=== PATIENT | female | born 1955 | race African-American/Black ===

== ENCOUNTER → 2016-08-13 | Outpatient (CLI) | payer MEDICARE ==
--- NOTE | 2016-08-13 15:33 | WOMENS IMAGING REPORT ---
EXAM DESCRIPTION: BILAT SCREENING MAMMO W/CAD COMPLETED DATE/TIME: 08/13/2016 3:23 pm REASON FOR STUDY: ROUTINE SCREENING; Z12.31 Z12.31 ENCNTR SCREEN MAMMOGRAM FOR MALIGNANT NEOPLASM O F JESSIE COMPARISON: 07/12/2015. TECHNIQUE: Standard craniocaudal and mediolateral oblique views of each breast recorded using UBIKODa l acquisition. LIMITATIONS: None. FINDINGS: Findings present which are benign by mammographic criteria. No suspicious masses, calcifi cations or architectural distortion. Pertinent benign findings: Calcifications unchanged. Read with the assistance of CAD. .[facility] - R2 Cenova Version 1.3 .[facility] - R2 Cenova Version 1.3 .[facility] - R2 Cenova Version 2.4 .[facility] [place] R2 Cenova Version 2.4 .[facility] - R2 Enrolled Nurse Version 9.2 Benign mammographic findings may include one or more of the following: Smooth masses, popcorn/rim/co arse calcifications, asymmetries, post-procedure changes, and lesions with long-standing stability. IMPRESSION: BENIGN MAMMOGRAPHIC FINDINGS. BIRADS 2 BREAST DENSITY: b. There are scattered areas of fibroglandular density. BIRAD: 2 BENIGN FINDING(S) RECOMMENDATION: ROUTINE SCREENING COMMENT: The patient has been notified of the results by letter per SA requirements. Additional no tification policies are in place for contacting patient with suspicious or incomplete findings. Quality ID #225: The [employer] recommends an annual screening mammogram for women aged 40 years or over. This facility utilizes a reminder system to ensure that all patients receive reminder letters, and/or direct phone calls for appointments. This includes reminders for routine scr eening mammograms, diagnostic mammograms, or other Breast Imaging Interventions when appropriate. Th is patient will be placed in the appropriate reminder system. The [employer] (ACR) has developed recommendations for screening MRI of the breast s in certain patient populations, to be used in conjunction with mammography. Breast MRI surveillanc e may be appropriate for women with more than 20% lifetime risk of developing breast cancer as deter mined by genetic testing, significant family history of the disease, or history of mantle radiation f or Hodgkins Disease. ACR Practice Guidelines 2008. TECHNICAL DOCUMENTATION: FINDING NUMBER: (1) ASSESSMENT: (1) JOB ID: [id number] [employer]- All Rights Reserved
== END ==
LOC: WI 15:01
PROVIDERS: ATTEND Internal Medicine
DX: Z12.31 Encounter for screening mammogram for malignant neoplasm of breast (principal)
CPT/HCPCS: 77067; G0202

== ENCOUNTER → 2017-04-30 | Outpatient (CLI) | payer MEDICARE ==
--- NOTE | 2017-04-30 14:31 | RADIOLOGY REPORT (SQ) ---
EXAM DESCRIPTION: CAROTID DOPPLER COMPLETED DATE/TIME: 04/30/2017 1:42 pm REASON FOR STUDY: ABNORMALITIES OF GAIT AND MOBILITY R06.00 DYSPNEA, UNSPECIFIED R26.9 UNSPECIFIED ABNORMALITIES OF GAIT AND MOBILITY COMPARISON: None. TECHNIQUE: Grayscale ultrasound, Doppler velocity and spectra, and color Doppler images acquired of the extra-cranial carotid and vertebral arteries. Images stored on PACS. LIMITATIONS: None. FINDINGS: RIGHT CAROTID CCA Velocities: Within normal limits. ICA Velocities Peak systolic 0.51 m/s. End diastolic 0.15 m/s. Proximal ICA/CCA peak systolic ratio 0.8. Spectra normal. No significant plaque. LEFT CAROTID CCA Velocities: Within normal limits. ICA Velocities Peak systolic 1.09 m/s. End diastolic 0.43 m/s. Proximal ICA/CCA peak systolic ratio 1.4. Spectra normal. No significant plaque. VERTEBRAL ARTERIES: Antegrade flow. Normal waveforms. SUBCLAVIAN ARTERIES: Not imaged. OTHER: No other significant finding. IMPRESSION: NO HEMODYNAMICALLY SIGNIFICANT STENOSIS. COMMENT: Quality ID #[id number]: Velocity criteria are extrapolated from the diameter data as defined by t he Society of Radiologists in Ultrasound Consensus Conference. Radiology 2003: 229; 340-346. TECHNICAL DOCUMENTATION: JOB ID: [id number] [employer]- All Rights Reserved Reading location - IP/workstation name: [email or web address]
== END ==
LOC: SP 12:45
PROVIDERS: ATTEND Internal Medicine
DX: R06.00 Dyspnea, unspecified (principal); R26.9 Unspecified abnormalities of gait and mobility
CPT/HCPCS: 93880

== ENCOUNTER 2017-05-28 23:28 | Emergency (ER) | payer MEDICARE ==
[2017-05-29] MEDS ORDERED: NORMAL SALINE 1000 ML 1,000 ML IV ONE ×3 (00:07→04:23)
[2017-05-29 00:38] LABS: ABSOLUTE BASOPHILS # (AUTO) 0.1 10^3/uL (0.0-0.2); ABSOLUTE EOSINOPHILS # (AUTO) 0.1 10^3/uL (0.0-0.6); ABSOLUTE LYMPHOCYTES (AUTO) 2.3 10^3/uL (0.5-4.7); ABSOLUTE MONOCYTES (AUTO) 0.6 10^3/uL (0.1-1.4); ABSOLUTE NEUT (AUTO) 1.9 10^3/uL (1.7-8.2); BASOPHILS % (AUTO) 1.1 % (0-2); EOSINOPHILS % (AUTO) 2.5 % (0-6); HEMATOCRIT 38.2 % (36.0-47.0); HEMOGLOBIN 12.9 g/dL (12.0-15.5); MEAN CORPUSCULAR HEMOGLOBIN 29.8 pg (27.0-33.4); MEAN CORPUSCULAR HGB CONC 33.8 g/dL (32.0-36.0); MEAN CORPUSCULAR VOLUME 88 fl (80-97); MONOCYTES % (AUTO) 11.4 % (3-13); PLATELET COUNT 175 10^3/uL (150-450); RED BLOOD COUNT 4.33 10^6/uL (3.72-5.28); RED CELL DISTRIBUTION WIDTH 14.1 % (11.5-14.0); TOTAL CELLS COUNTED % (AUTO) 100 %; WHITE BLOOD COUNT 4.9 10^3/uL (4.0-10.5)
[2017-05-29 00:50] LABS: ALANINE AMINOTRANSFERASE 27 U/L (9-52); ALBUMIN 4.3 g/dL (3.5-5.0); ALKALINE PHOSPHATASE 81 U/L (38-126); ANION GAP 14 (5-19); ASPARTATE AMINO TRANSFERASE 30 U/L (14-36); BILIRUBIN,DIRECT 0.4 mg/dL (0.0-0.4); BILIRUBIN,TOTAL 0.4 mg/dL (0.2-1.3); BLOOD UREA NITROGEN 37 mg/dL (7-20); CALCIUM 9.8 mg/dL (8.4-10.2); CARBON DIOXIDE 24 mmol/L (22-30); CHLORIDE 95 mmol/L (98-107); POTASSIUM 4.5 mmol/L (3.6-5.0)
[2017-05-29 01:05] LABS: GLUCOSE 577 mg/dL (75-110)
--- NOTE | 2017-05-29 01:37 | ER Document Report ---
ED General - General Chief Complaint: High Blood Sugar Stated Complaint: BLOOD SUGAR PROBLEM Time Seen by Provider: 05/29/17 01:11 Mode of Arrival: Ambulatory Information source: Patient, Relative Notes: 61-year-old female with a history of known liver cirrhosis, renal insufficiency, diabetes, hypertension, hyperlipidemia, hypothyroid presents with concern for elevated blood sugar. Patient states at home she had a high sugar reading despite her increasing her NovoLog. She states she has had intermittent elevated glucose readings over the last few weeks. She states she is working with her primary care physician and has had some recent adjustments in her NovoLog and Levemir. Patient denies any fever, chills, nausea, vomiting, chest pain, shortness of breath, back pain, abdominal pain, dysuria, hematuria, weakness. She does admit to a very poor diet. She states that she drinks " lots of pop" she states "I am a Pepsi freak". Patient admits to daily sweets. Family is at bedside. TRAVEL OUTSIDE OF THE [place] IN LAST 30 DAYS: No - HPI Onset: This evening Quality of pain: No pain Severity: None Associated symptoms: denies: Chest pain, Nonproductive cough, Diarrhea, Fever, Headache, Shortness of breath Exacerbated by: Denies Relieved by: Denies Similar symptoms previously: Yes Recently seen / treated by doctor: Yes - Dr Ramirez - Related Data Allergies/Adverse Reactions: No Known Allergies Allergy (Unverified 05/28/17 23:30) Past Medical History - General Information source: Patient - Social History Smoking Status: Former Smoker Cigarette use (# per day): No Chew tobacco use (# tins/day): Yes Smoking Education Provided: No Frequency of alcohol use: Prior history of alcohol use in remission for 9 years Drug Abuse: None Lives with: Family Family History: Reviewed & Not Pertinent Patient has suicidal ideation: No Patient has homicidal ideation: No - Past Medical History Cardiac Medical History: Reports: Hx Hypercholesterolemia, Hx Hypertension Endocrine Medical History: Reports: Hx Diabetes Mellitus Type 2, Hx Hypothyroidism Review of Systems - Review of Systems Notes: Patient denies any headache, blurred vision, fever, chills, nausea, vomiting, chest pain, shortness of breath, back pain, abdominal pain, dysuria, hematuria, weakness. She does admit to a very poor diet. Constitutional: denies: Fever Physical Exam - Vital signs Vitals: Temp Pulse Resp BP Pulse Ox 98.8 F 109 H 20 131/87 H 95 05/29/17 00:08 05/29/17 00:08 05/29/17 00:08 05/29/17 00:08 05/29/17 00:08 Interpretation: Normal, Tachycardic. No: Tachypneic, Febrile - General General appearance: Appears well, Alert In distress: None - HEENT Head: Normocephalic, Atraumatic Eyes: Normal Pupils: PERRL Mucous membranes: Normal Pharynx: Normal Neck: Normal - Respiratory Respiratory status: No respiratory distress Chest status: Nontender Breath sounds: Normal Chest palpation: Normal - Cardiovascular Rhythm: Regular Heart sounds: Normal auscultation Murmur: No Pulses: Normal: Radial, Dorsalis pedis Normal capillary refill: Yes - Abdominal Inspection: Normal Distension: No distension Bowel sounds: Normal Tenderness: Nontender Organomegaly: No organomegaly - Back Back: Normal, Nontender - Extremities General upper extremity: Normal inspection, Nontender, Normal color, Normal ROM , Normal temperature. No: Edema General lower extremity: Normal inspection, Nontender, Normal color, Normal ROM , Normal temperature, Normal weight bearing. No: Edema, Flaquito's sign - Neurological Neuro grossly intact: Yes Cognition: Normal Orientation: AAOx4 Ricci Coma Scale Eye Opening: Spontaneous [place] Coma Scale Verbal: Oriented Ricci Coma Scale Motor: Obeys Commands [place] Coma Scale Total: 15 Speech: Normal Cranial nerves: Normal Cerebellar coordination: Normal Motor strength normal: LUE, RUE, LLE, RLE Additional motor exam normals: Equal field administrative assistant, Dorsiflexion, Plantar flexion Sensory: Normal - Psychological Associated symptoms: Normal affect, Normal mood Course - Re-evaluation Re-evalutation: Laboratory 05/29/17 05/29/17 05/29/17 00:02 00:12 00:18 WBC 4.9 RBC 4.33 Hgb 12.9 Hct 38.2 MCV 88 MCH 29.8 MCHC 33.8 RDW 14.1 H Plt Count 175 Seg Neutrophils % 39.0 L Lymphocytes % 46.0 H Monocytes % 11.4 Eosinophils % 2.5 Basophils % 1.1 Absolute Neutrophils 1.9 Absolute Lymphocytes 2.3 Absolute Monocytes 0.6 Absolute Eosinophils 0.1 Absolute Basophils 0.1 Sodium Potassium Chloride Carbon Dioxide Anion Gap BUN Creatinine Est GFR ( Amer) Est GFR (Non-Af Amer) Glucose POC Glucose 523 H* Calcium Total Bilirubin Direct Bilirubin Neonat Total Bilirubin Neonat Direct Bilirubin Neonat Indirect Bili AST ALT Alkaline Phosphatase Total Protein Albumin Urine Color STRAW Urine Appearance CLEAR Urine pH 6.0 Ur Specific Ruffin 1.022 Urine Protein NEGATIVE Urine Glucose (UA) >=500 H Urine Ketones NEGATIVE Urine Blood NEGATIVE Urine Nitrite NEGATIVE Urine Bilirubin NEGATIVE Urine Urobilinogen 4.0 H Ur Leukocyte Esterase NEGATIVE Urine WBC (Auto) 1 Urine RBC (Auto) 0 Squamous Epi Cells Auto 1 Urine Mucus (Auto) RARE Urine Ascorbic Acid NEGATIVE 05/29/17 05/29/17 05/29/17 00:18 02:45 03:42 WBC RBC Hgb Hct MCV MCH MCHC RDW Plt Count Seg Neutrophils % Lymphocytes % Monocytes % Eosinophils % Basophils % Absolute Neutrophils Absolute Lymphocytes Absolute Monocytes Absolute Eosinophils Absolute Basophils Sodium 133.0 L Potassium 4.5 Chloride 95 L Carbon Dioxide 24 Anion Gap 14 BUN 37 H Creatinine 1.43 H Est GFR ( Amer) 45 L Est GFR (Non-Af Amer) 37 L Glucose 577 H* POC Glucose 419 H* 395 H Calcium 9.8 Total Bilirubin 0.4 Direct Bilirubin 0.4 Neonat Total Bilirubin Not Reportable Neonat Direct Bilirubin Not Reportable Neonat Indirect Bili Not Reportable AST 30 ALT 27 Alkaline Phosphatase 81 Total Protein 8.0 Albumin 4.3 Urine Color Urine Appearance Urine pH Ur Specific Ruffin Urine Protein Urine Glucose (UA) Urine Ketones Urine Blood Urine Nitrite Urine Bilirubin Urine Urobilinogen Ur Leukocyte Esterase Urine WBC (Auto) Urine RBC (Auto) Squamous Epi Cells Auto Urine Mucus (Auto) Urine Ascorbic Acid 05/29/17 05/29/17 05:03 06:19 WBC RBC Hgb Hct MCV MCH MCHC RDW Plt Count Seg Neutrophils % Lymphocytes % Monocytes % Eosinophils % Basophils % Absolute Neutrophils Absolute Lymphocytes Absolute Monocytes Absolute Eosinophils Absolute Basophils Sodium Potassium Chloride Carbon Dioxide Anion Gap BUN Creatinine Est GFR ( Amer) Est GFR (Non-Af Amer) Glucose POC Glucose 341 H 294 H Calcium Total Bilirubin Direct Bilirubin Neonat Total Bilirubin Neonat Direct Bilirubin Neonat Indirect Bili AST ALT Alkaline Phosphatase Total Protein Albumin Urine Color Urine Appearance Urine pH Ur Specific Ruffin Urine Protein Urine Glucose (UA) Urine Ketones Urine Blood Urine Nitrite Urine Bilirubin Urine Urobilinogen Ur Leukocyte Esterase Urine WBC (Auto) Urine RBC (Auto) Squamous Epi Cells Auto Urine Mucus (Auto) Urine Ascorbic Acid Laboratory 05/29/17 05/29/17 05/29/17 00:02 00:12 00:18 WBC 4.9 RBC 4.33 Hgb 12.9 Hct 38.2 MCV 88 MCH 29.8 MCHC 33.8 RDW 14.1 H Plt Count 175 Seg Neutrophils % 39.0 L Lymphocytes % 46.0 H Monocytes % 11.4 Eosinophils % 2.5 Basophils % 1.1 Absolute Neutrophils 1.9 Absolute Lymphocytes 2.3 Absolute Monocytes 0.6 Absolute Eosinophils 0.1 Absolute Basophils 0.1 Sodium Potassium Chloride Carbon Dioxide Anion Gap BUN Creatinine Est GFR ( Amer) Est GFR (Non-Af Amer) Glucose POC Glucose 523 H* Calcium Total Bilirubin Direct Bilirubin Neonat Total Bilirubin Neonat Direct Bilirubin Neonat Indirect Bili AST ALT Alkaline Phosphatase Total Protein Albumin Urine Color STRAW Urine Appearance CLEAR Urine pH 6.0 Ur Specific Ruffin 1.022 Urine Protein NEGATIVE Urine Glucose (UA) >=500 H Urine Ketones NEGATIVE Urine Blood NEGATIVE Urine Nitrite NEGATIVE Urine Bilirubin NEGATIVE Urine Urobilinogen 4.0 H Ur Leukocyte Esterase NEGATIVE Urine WBC (Auto) 1 Urine RBC (Auto) 0 Squamous Epi Cells Auto 1 Urine Mucus (Auto) RARE Urine Ascorbic Acid NEGATIVE 05/29/17 05/29/17 05/29/17 00:18 02:45 03:42 WBC RBC Hgb Hct MCV MCH MCHC RDW Plt Count Seg Neutrophils % Lymphocytes % Monocytes % Eosinophils % Basophils % Absolute Neutrophils Absolute Lymphocytes Absolute Monocytes Absolute Eosinophils Absolute Basophils Sodium 133.0 L Potassium 4.5 Chloride 95 L Carbon Dioxide 24 Anion Gap 14 BUN 37 H Creatinine 1.43 H Est GFR ( Amer) 45 L Est GFR (Non-Af Amer) 37 L Glucose 577 H* POC Glucose 419 H* 395 H Calcium 9.8 Total Bilirubin 0.4 Direct Bilirubin 0.4 Neonat Total Bilirubin Not Reportable Neonat Direct Bilirubin Not Reportable Neonat Indirect Bili Not Reportable AST 30 ALT 27 Alkaline Phosphatase 81 Total Protein 8.0 Albumin 4.3 Urine Color Urine Appearance Urine pH Ur Specific Ruffin Urine Protein Urine Glucose (UA) Urine Ketones Urine Blood Urine Nitrite Urine Bilirubin Urine Urobilinogen Ur Leukocyte Esterase Urine WBC (Auto) Urine RBC (Auto) Squamous Epi Cells Auto Urine Mucus (Auto) Urine Ascorbic Acid 05/29/17 05/29/17 05:03 06:19 WBC RBC Hgb Hct MCV MCH MCHC RDW Plt Count Seg Neutrophils % Lymphocytes % Monocytes % Eosinophils % Basophils % Absolute Neutrophils Absolute Lymphocytes Absolute Monocytes Absolute Eosinophils Absolute Basophils Sodium Potassium Chloride Carbon Dioxide Anion Gap BUN Creatinine Est GFR ( Amer) Est GFR (Non-Af Amer) Glucose POC Glucose 341 H 294 H Calcium Total Bilirubin Direct Bilirubin Neonat Total Bilirubin Neonat Direct Bilirubin Neonat Indirect Bili AST ALT Alkaline Phosphatase Total Protein Albumin Urine Color Urine Appearance Urine pH Ur Specific Ruffin Urine Protein Urine Glucose (UA) Urine Ketones Urine Blood Urine Nitrite Urine Bilirubin Urine Urobilinogen Ur Leukocyte Esterase Urine WBC (Auto) Urine RBC (Auto) Squamous Epi Cells Auto Urine Mucus (Auto) Urine Ascorbic Acid 05/29/17 20:11 61 y/o female with diabetes presents with c/o elevated glucose reading at home. Patient is currently taking novolog and levemir and states despite increasing her medications recently under the advice of her pcp she has noticed intermittent high readings at home. VSS upon arrival. She has no physical complaints and her exam is wnl. She does not appear toxic or dehydrated and is NAD. her family is at the bedside and she is laughing and joking with everyone. Patient has glucose of 577 upon arrival this improved to 294 after three litres of fluids and sq insulin. There is no evidence of dka or inciting infection. Patient does have an elevated BUN and creatinine. when I discussed these findings patient states she is aware of this and admits to poor water intake and only drinking pepsi. I believe elevated glucose is secondary to patient's poor diet. Patient counseled on importance of diet and exercise, water intake, the effects of elevated glucose. She laughs and states she met someone who is making her eat better. She was discharged home with her family. Patient tolerating fluids and "fast food" prior to discharge. 05/29/17 20:13 05/29/17 20:29 - Vital Signs Vital signs: Temp Pulse Resp BP Pulse Ox 98.6 F 109 H 25 H 136/86 H 99 05/29/17 06:37 05/29/17 00:08 05/29/17 06:36 05/29/17 06:37 05/29/17 06:36 - Laboratory Result Diagrams: 05/29/17 00:18 05/29/17 00:18 Laboratory results interpreted by me: 05/29/17 05/29/17 05/29/17 00:02 00:12 00:18 RDW 14.1 H Seg Neutrophils % 39.0 L Lymphocytes % 46.0 H Sodium Chloride BUN Creatinine Est GFR ( Amer) Est GFR (Non-Af Amer) Glucose POC Glucose 523 H* Urine Glucose (UA) >=500 H Urine Urobilinogen 4.0 H 05/29/17 05/29/17 05/29/17 00:18 02:45 03:42 RDW Seg Neutrophils % Lymphocytes % Sodium 133.0 L Chloride 95 L BUN 37 H Creatinine 1.43 H Est GFR ( Amer) 45 L Est GFR (Non-Af Amer) 37 L Glucose 577 H* POC Glucose 419 H* 395 H Urine Glucose (UA) Urine Urobilinogen 05/29/17 05/29/17 05:03 06:19 RDW Seg Neutrophils % Lymphocytes % Sodium Chloride BUN Creatinine Est GFR ( Amer) Est GFR (Non-Af Amer) Glucose POC Glucose 341 H 294 H Urine Glucose (UA) Urine Urobilinogen Discharge - Discharge Clinical Impression: Hyperglycemia due to type 2 diabetes mellitus Qualifiers: Diabetes mellitus [facility] insulin use: with [facility] use Qualified Code(s): E11.65 - Type 2 diabetes mellitus with hyperglycemia Disposition: HOME, SELF-CARE Instructions: Hyperglycemia ([facility]) Referrals: REGINA ROBERTSON MD [Primary Care Provider] - Follow up in 3-5 days
[2017-05-29 02:39] LABS: APPEARANCE,URINE CLEAR; BILIRUBIN,URINE NEGATIVE (NEGATIVE); COLOR,URINE STRAW; GLUCOSE, URINE >=500 mg/dL (NEGATIVE); KETONES,URINE NEGATIVE (NEGATIVE); LEUKOCYTE ESTERASE,URINE NEGATIVE (NEGATIVE); NITRITE,URINE NEGATIVE (NEGATIVE); PROTEIN,URINE NEGATIVE (NEGATIVE); URINE SPECIFIC GRAVITY 1.022
[2017-05-29] MEDS ORDERED: INSULIN LISPRO 100 UNIT/ML 3 ML VIAL SUBCUT ONE (05:06)
[2017-05-29 06:40] VITALS: BP 136/86
== END 2017-05-29 06:41 | disposition home or self-care (01) ==
LOC: ER 23:28
DX: E11.65 Type 2 diabetes mellitus with hyperglycemia (principal); I10 Essential (primary) hypertension; Z79.4 Long term (current) use of insulin; Z87.891 Personal history of nicotine dependence
CPT/HCPCS: 99283; 96360; 96361; 36415; 82962; 85025; 80053; 81001; A9270; J7030; J1815

== ENCOUNTER → 2017-08-14 | Outpatient (CLI) | payer MEDICARE ==
--- NOTE | 2017-08-15 14:44 | WOMENS IMAGING REPORT ---
EXAM DESCRIPTION: BILAT SCREENING MAMMO W/CAD COMPLETED DATE/TIME: 08/14/2017 11:37 am REASON FOR STUDY: ROUTINE SCREENING;Z12.31 Z12.31 ENCNTR SCREEN MAMMOGRAM FOR MALIGNANT NEOPLASM OF JESSIE COMPARISON: 08/13/2016 and 07/12/2015 TECHNIQUE: Standard craniocaudal and mediolateral oblique views of each breast recorded using [employer] acquisition. LIMITATIONS: None. FINDINGS: Findings present which are benign by mammographic criteria. No suspicious masses, calcifi cations or architectural distortion. Read with the assistance of CAD. .[facility] - R2 Cenova Version 1.3 .[facility] - R2 Cenova Version 1.3 .[facility] - R2 Cenova Version 2.4 .[facility] [place] - R2 Cenova Version 2.4 .[facility] - R2 Station [employer]ice Version 9.2 Benign mammographic findings may include one or more of the following: Smooth masses, popcorn/rim/co arse calcifications, asymmetries, post-procedure changes, and lesions with long-standing stability. IMPRESSION: BENIGN MAMMOGRAPHIC FINDINGS. BIRADS 2 BREAST DENSITY: b. There are scattered areas of fibroglandular density. BIRAD: 2 BENIGN FINDING(S) RECOMMENDATION: ROUTINE SCREENING COMMENT: The patient has been notified of the results by letter per SA requirements. Additional no tification policies are in place for contacting patient with suspicious or incomplete findings. Quality ID #[id number]: The [employer] recommends an annual screening mammogram for women aged 40 years or over. This facility utilizes a reminder system to ensure that all patients receive reminder letters, and/or direct phone calls for appointments. This includes reminders for routine scr eening mammograms, diagnostic mammograms, or other Breast Imaging Interventions when appropriate. Th is patient will be placed in the appropriate reminder system. The [employer] (ACR) has developed recommendations for screening MRI of the breast s in certain patient populations, to be used in conjunction with mammography. Breast MRI surveillanc e may be appropriate for women with more than 20% lifetime risk of developing breast cancer as deter mined by genetic testing, significant family history of the disease, or history of mantle radiation f or Hodgkins Disease. ACR Practice Guidelines 2008. TECHNICAL DOCUMENTATION: FINDING NUMBER: (1) ASSESSMENT: (1) JOB ID: [id number] [employer]- All Rights Reserved Reading location - IP/workstation name: [email or web address]
== END ==
LOC: WI 11:10
PROVIDERS: ATTEND Internal Medicine
DX: Z12.31 Encounter for screening mammogram for malignant neoplasm of breast (principal)
CPT/HCPCS: 77067

== ENCOUNTER 2017-11-24 17:11 | Inpatient (IN) | payer MEDICARE ==
--- NOTE | 2017-11-24 18:53 | ER Document Report ---
ED Medical Screen (RME) - General Chief Complaint: High Blood Sugar Stated Complaint: BLOOD SUGAR ISSUE Time Seen by Provider: 11/24/17 18:47 Mode of Arrival: Wheelchair Information source: Patient Notes: This is a 62-year-old female with a history of diabetes, cirrhosis with hepatic encephalopathy, Parkinson's disease who is brought into the emergency room with a one-week history of increased fatigue, increased difficulty walking, decreased vision. Patient complains of generalized weakness. TRAVEL OUTSIDE OF THE [place] IN LAST 30 DAYS: No - Related Data Allergies/Adverse Reactions: No Known Allergies Allergy (Verified 11/24/17 17:12) Past Medical History - Social History Chew tobacco use (# tins/day): No Frequency of alcohol use: None Drug Abuse: None - Past Medical History Cardiac Medical History: Reports: Hx Hypercholesterolemia, Hx Hypertension Endocrine Medical History: Reports: Hx Diabetes Mellitus Type 2, Hx Hypothyroidism Renal/ Medical History: Denies: Hx Peritoneal Dialysis Physical Exam - Vital signs Vitals: Temp Pulse Resp BP Pulse Ox 98.5 F 110 H 16 139/89 H 98 11/24/17 17:16 11/24/17 17:16 11/24/17 17:16 11/24/17 17:16 11/24/17 17:16 Course - Vital Signs Vital signs: Temp Pulse Resp BP Pulse Ox 98.5 F 110 H 16 139/89 H 98 11/24/17 17:16 11/24/17 17:16 11/24/17 17:16 11/24/17 17:16 11/24/17 17:16 Doctor's Discharge - Discharge Referrals: TATY RIVERA MD [Primary Care Provider] - Follow up as needed
[2017-11-24 19:39] LABS: ABSOLUTE EOSINOPHILS # (AUTO) 0.1 10^3/uL (0.0-0.6); ABSOLUTE MONOCYTES (AUTO) 0.6 10^3/uL (0.1-1.4); BASOPHILS % (AUTO) 0.5 % (0-2); EOSINOPHILS % (AUTO) 1.8 % (0-6); HEMATOCRIT 45.2 % (36.0-47.0); HEMOGLOBIN 15.1 g/dL (12.0-15.5); LYMPHOCYTES % (AUTO) 29.4 % (13-45); MEAN CORPUSCULAR HEMOGLOBIN 29.4 pg (27.0-33.4); MEAN CORPUSCULAR HGB CONC 33.4 g/dL (32.0-36.0); MEAN CORPUSCULAR VOLUME 88 fl (80-97); MONOCYTES % (AUTO) 9.4 % (3-13); PLATELET COUNT 253 10^3/uL (150-450); RED BLOOD COUNT 5.13 10^6/uL (3.72-5.28); SEGMENTED NEUTROPHILS % (AUTO) 58.9 % (42-78); TOTAL CELLS COUNTED % (AUTO) 100 %; WHITE BLOOD COUNT 6.7 10^3/uL (4.0-10.5)
[2017-11-24 19:45] LABS: INTERNATIONAL RATION (INR) 1.01; PROTHROMBIN TIME 13.8 SEC (11.4-15.4)
[2017-11-24 20:09] LABS: ALANINE AMINOTRANSFERASE 17 U/L (9-52); ALBUMIN 4.7 g/dL (3.5-5.0); ALKALINE PHOSPHATASE 124 U/L (38-126); ASPARTATE AMINO TRANSFERASE 18 U/L (14-36); BILIRUBIN,DIRECT 0.6 mg/dL (0.0-0.4); BILIRUBIN,TOTAL 1.1 mg/dL (0.2-1.3); BLOOD UREA NITROGEN 33 mg/dL (7-20); CALCIUM 10.2 mg/dL (8.4-10.2); CARBON DIOXIDE 22 mmol/L (22-30); POTASSIUM 5.5 mmol/L (3.6-5.0); TOTAL PROTEIN 9.2 g/dL (6.3-8.2)
[2017-11-24 20:14] LABS: CHLORIDE 81 mmol/L (98-107); SODIUM 125.2 mmol/L (137-145)
[2017-11-24 20:17] LABS: ANION GAP 22 (5-19)
[2017-11-24 20:19] LABS: GLUCOSE 773 mg/dL (75-110)
[2017-11-24] MEDS ORDERED: NORMAL SALINE 1000 ML 2,000 ML IV ONE (20:23)
[2017-11-24 21:08] LABS: VENOUS BLOOD HCO3 23.3 mmol/L (20-32); VENOUS BLOOD PCO2 41.5 mmHg (35-63); VENOUS BLOOD PH 7.37 (7.30-7.42)
[2017-11-24 21:57] LABS: APPEARANCE,URINE CLOUDY; BILIRUBIN,URINE NEGATIVE (NEGATIVE); COLOR,URINE STRAW; GLUCOSE, URINE >=500 mg/dL (NEGATIVE); KETONES,URINE TRACE mg/dL (NEGATIVE); LEUKOCYTE ESTERASE,URINE NEGATIVE (NEGATIVE); NITRITE,URINE NEGATIVE (NEGATIVE); PROTEIN,URINE NEGATIVE (NEGATIVE); URINE SPECIFIC GRAVITY 1.027; UROBILINOGEN,URINE NEGATIVE mg/dL (<2.0)
[2017-11-24] MEDS ORDERED: INSULIN REG, HUMAN 100 UNIT/ML 3 ML VIAL (PYX) IV ONE (22:36)
[2017-11-25 02:45] LABS: ANION GAP 12 (5-19); BLOOD UREA NITROGEN 28 mg/dL (7-20); CALCIUM 8.8 mg/dL (8.4-10.2); CARBON DIOXIDE 21 mmol/L (22-30); CHLORIDE 96 mmol/L (98-107); SODIUM 128.9 mmol/L (137-145)
[2017-11-25 03:08] LABS: POTASSIUM 4.2 mmol/L (3.6-5.0)
[2017-11-25 03:09] LABS: GLUCOSE 497 mg/dL (75-110)
[2017-11-25] MEDS ORDERED: NORMAL SALINE 1000 ML 1,000 ML IV ONE (05:14)
--- NOTE | 2017-11-25 06:02 | ER Document Report ---
ED Blood Sugar Problem - General Chief Complaint: High Blood Sugar Stated Complaint: BLOOD SUGAR ISSUE Time Seen by Provider: 11/24/17 18:47 Mode of Arrival: Wheelchair Notes: Patient is a 62-year-old female who presents with chief complaint of elevated blood sugar and blurred vision. Patient reports that over the last several days her blood sugar has been reading in the 400-500 range. Patient reports that she takes Levemir and NovoLog daily. Patient denies any nausea or vomiting. TRAVEL OUTSIDE OF THE [place] IN LAST 30 DAYS: Yes - Related Data Allergies/Adverse Reactions: No Known Allergies Allergy (Verified 11/24/17 17:12) Past Medical History - General Information source: Patient - Social History Smoking Status: Never Smoker Chew tobacco use (# tins/day): No Frequency of alcohol use: None Drug Abuse: None Family History: Reviewed & Not Pertinent Patient has suicidal ideation: No Patient has homicidal ideation: No - Past Medical History Cardiac Medical History: Reports: Hx Hypercholesterolemia, Hx Hypertension Endocrine Medical History: Reports: Hx Diabetes Mellitus Type 2, Hx Hypothyroidism Renal/ Medical History: Denies: Hx Peritoneal Dialysis Past Surgical History: Reports: Hx Cardiac Catheterization - stent x2 Review of Systems - Review of Systems Constitutional: No symptoms reported, Malaise EENT: Blurred vision Cardiovascular: No symptoms reported Respiratory: No symptoms reported Gastrointestinal: No symptoms reported Genitourinary: No symptoms reported Female Genitourinary: No symptoms reported Musculoskeletal: No symptoms reported Skin: No symptoms reported Hematologic/Lymphatic: No symptoms reported Neurological/Psychological: No symptoms reported -: Yes All other systems reviewed and negative Physical Exam - Vital signs Vitals: Temp Pulse Resp BP Pulse Ox 98.5 F 110 H 16 139/89 H 98 11/24/17 17:16 11/24/17 17:16 11/24/17 17:16 11/24/17 17:16 11/24/17 17:16 - Notes Notes: PHYSICAL EXAMINATION: GENERAL: Well-appearing, well-nourished and in no acute distress. HEAD: Atraumatic, normocephalic. EYES: Pupils equal round and reactive to light, extraocular movements intact, conjunctiva are normal. ENT: Nares patent, oropharynx clear without exudates. Moist mucous membranes. NECK: Normal range of motion, supple without lymphadenopathy LUNGS: Breath sounds clear to auscultation bilaterally and equal. No wheezes rales or rhonchi. HEART: Regular rate and rhythm without murmurs ABDOMEN: Soft, nontender, nondistended abdomen. No guarding, no rebound. No masses appreciated. Female : deferred Musculoskeletal: Normal range of motion, no pitting or edema. No cyanosis. NEUROLOGICAL: Cranial nerves grossly intact. Normal speech, normal gait. Normal sensory, motor exams PSYCH: Normal mood, normal affect. SKIN: Warm, Dry, normal turgor, no rashes or lesions noted. Course - Re-evaluation Re-evalutation: Patient with hyponatremia, sodium 125.2, potassium is 5.5. Initial glucose is 773. Normal VBG. Patient will be given 10 units of IV insulin as well as IV hydration and we will recheck a chemistry in several hours. Patient is agreeable to this plan. Vital signs are stable at this time. Seizure precautions in place. Repeat chemistry with sodium of 128.9. Glucose is 497. Patient reports mild improvement of her symptoms. We will continue to monitor patient. 11/25/17 07:05 Called press operator heavy duty to speak with Dr. Maddox for admission for this patient. She indicated that she will page him to my number. 11/25/17 07:21 Dr. Maddox returned page, and patient was discussed with him and he accepted patient for admission to telemetry. - Vital Signs Vital signs: Temp Pulse Resp BP Pulse Ox 98.5 F 110 H 24 H 104/65 95 11/24/17 17:16 11/24/17 17:16 11/25/17 07:00 11/25/17 06:00 11/25/17 07:00 - Laboratory Result Diagrams: 11/24/17 19:19 11/25/17 02:13 Laboratory results interpreted by me: 11/24/17 11/24/17 11/24/17 19:19 19:19 21:38 Sodium 125.2 L Potassium 5.5 H Chloride 81 L Carbon Dioxide Anion Gap 22 H BUN 33 H Creatinine 1.58 H Est GFR ( Amer) 40 L Est GFR (Non-Af Amer) 33 L Glucose 773 H* POC Glucose Direct Bilirubin 0.6 H Ammonia < 8.7 L Total Protein 9.2 H Urine Glucose (UA) >=500 H Urine Ketones TRACE H 11/25/17 11/25/17 00:06 02:13 Sodium 128.9 L Potassium Chloride 96 L Carbon Dioxide 21 L Anion Gap BUN 28 H Creatinine Est GFR ( Amer) 58 L Est GFR (Non-Af Amer) 48 L Glucose 497 H* POC Glucose 530 H* Direct Bilirubin Ammonia Total Protein Urine Glucose (UA) Urine Ketones Discharge - Discharge Clinical Impression: Hyponatremia, Hyperglycemia Condition: Stable Disposition: ADMITTED INPATIENT Admitting Provider: [facility] Admitted: Telemetry Referrals: TATY RIVERA MD [Primary Care Provider] - Follow up as needed
[2017-11-25 07:25] LABS: ANION GAP 12 (5-19); BLOOD UREA NITROGEN 26 mg/dL (7-20); CALCIUM 8.9 mg/dL (8.4-10.2); CARBON DIOXIDE 22 mmol/L (22-30); CHLORIDE 95 mmol/L (98-107); POTASSIUM 4.8 mmol/L (3.6-5.0); SODIUM 129.3 mmol/L (137-145)
[2017-11-25 07:40] LABS: GLUCOSE 506 mg/dL (75-110)
--- NOTE | 2017-11-25 07:56 | EKG REPORT ---
SEVERITY:- ABNORMAL ECG - SINUS RHYTHM PROBABLE INFERIOR INFARCT, AGE INDETERMINATE PROLONGED QT INTERVAL : Confirmed by: Trev Womack 25-Nov-2017 07:55:57
[2017-11-25] MEDS ORDERED: DOCUSATE SODIUM 100 MG CAPSULE PO PRN ×2 (10:38→13:00)
[2017-11-25] MEDS ORDERED: ACETAMINOPHEN 325 MG TABLET PO PRN ×2 (10:38→13:00)
[2017-11-25] MEDS ORDERED: OXYCODONE-ACETAMINOPHEN 5-325 MG TABLET PO PRN (10:51)
[2017-11-25] MEDS ORDERED: INSULIN LISPRO 100 UNIT/ML 3 ML VIAL SUBCUT SCH (11:00)
[2017-11-25] MEDS ORDERED: ENOXAPARIN SODIUM INJ 40 MG/0.4 ML DISP.SYRIN SUBCUT ONE (12:00)
[2017-11-25] MEDS: NORMAL SALINE 1000 ML 1,000 ML IV PRN ×3 (12:41→22:46)
[2017-11-25] MEDS ORDERED: SPIRONOLACTONE 25 MG TABLET PO ONE (13:00)
[2017-11-25] MEDS ORDERED: FUROSEMIDE 20 MG TABLET PO ONE (13:00)
[2017-11-25] MEDS ORDERED: FENOFIBRATE NANOCRYSTALLIZED 145 MG TABLET PO ONE (13:00)
[2017-11-25] MEDS ORDERED: CITALOPRAM HYDROBROMIDE 20 MG TABLET PO ONE (13:00)
[2017-11-25] MEDS ORDERED: LOSARTAN POTASSIUM 25 MG TABLET PO ONE (13:00)
[2017-11-25] MEDS ORDERED: CLOPIDOGREL BISULFATE 75 MG TABLET PO ONE (13:00)
[2017-11-25] MEDS ORDERED: INSULIN DETEMIR 100 UNIT/ML 3 ML PEN SUBCUT ONE (13:00)
[2017-11-25] MEDS ORDERED: ATENOLOL 50 MG TABLET PO ONE (13:00)
[2017-11-25] MEDS ORDERED: INSULIN LISPRO 100 UNIT/ML 3 ML VIAL SUBCUT PRN (13:18)
[2017-11-25] MEDS ORDERED: NITROGLYCERIN 0.4 MG/TAB 25 TAB/BOTTLE SL PRN (13:23)
--- NOTE | 2017-11-25 13:23 | PDOC H&P ---
History of Present Illness Admission Date/PCP: 11/25/17 08:30 REGINA ROBERTSON Patient complains of: WEAKNESS, FATIGUE AND ELEVATED BLOOD SUGAR. History of Present Illness: DONNIE ROSALES is a 62 year old female with hx of DM2/DM neuropathyHTN/ Hyperlipidemia/Hypothyroidism/CAD s.p stentsx2/Chronic ischemic heart disease/ Liver cirrhosis/GERD/DM gastroparesis/OA/Hepatitis B/Migraine [place]/Tremors/ Depression, who was in her baseline till a couple of days ago, she started having worsening generalized weakness, fatigue, blurry vision and inability to walk around. Her blood sugar was persistently high, so she decided to to come to ER for evaluation. Her BG at ER was 773 and her sodium was 125. She was admitted for uncontrolled DM and hyponatremia. Past Medical History Cardiac Medical History: Reports: Hyperlipidema, Hypertension Endocrine Medical History: Reports: Diabetes Mellitus Type 2, Hypothyroidism Past Surgical History Past Surgical History: Reports: Cardiac Catheterization - stent x2 Social History Smoking Status: Never Smoker Family History Family History: Reviewed & Not Pertinent Parental Family History Reviewed: Yes Children Family History Reviewed: Yes Sibling(s) Family History Reviewed.: Yes Medication/Allergy Allergies/Adverse Reactions: No Known Allergies Allergy (Verified 11/24/17 17:12) Review of Systems All systems: as per PMH Constitutional: PRESENT: fatigue, weakness Eyes: PRESENT: as per HPI, visual disturbances Ears: PRESENT: as per HPI Nose, Mouth, and Throat: PRESENT: as per HPI Cardiovascular: PRESENT: as per HPI Respiratory: PRESENT: as per HPI Gastrointestinal: PRESENT: as per HPI Genitourinary: PRESENT: as per HPI Musculoskeletal: PRESENT: as per HPI, muscle weakness Integumentary: PRESENT: as per HPI Neurological: PRESENT: as per HPI, tremor(s), weakness Psychiatric: PRESENT: as per HPI Endocrine: PRESENT: as per HPI Hematologic/Lymphatic: PRESENT: as per HPI Physical Exam Vital Signs: Temp Pulse Resp BP Pulse Ox 98.5 F 110 H 19 109/78 93 11/24/17 17:16 11/24/17 17:16 11/25/17 10:01 11/25/17 10:00 11/25/17 10:01 General appearance: PRESENT: no acute distress, cooperative, well-developed, well-nourished Head exam: PRESENT: atraumatic, normocephalic Eye exam: PRESENT: EOMI, PERRLA Ear exam: PRESENT: normal external ear exam, TM's normal bilaterally Mouth exam: PRESENT: neck supple, tongue midline Neck exam: PRESENT: full ROM Respiratory exam: PRESENT: clear to auscultation rakesh, symmetrical Cardiovascular exam: PRESENT: +S1, +S2 Pulses: PRESENT: +2 pedal pulses bilateral GI/Abdominal exam: PRESENT: normal bowel sounds, soft Rectal exam: PRESENT: deferred Extremities exam: PRESENT: full ROM Musculoskeletal exam: PRESENT: full ROM Neurological exam: PRESENT: awake, oriented to person, oriented to place, oriented to time Psychiatric exam: PRESENT: normal mood Assessment & Plan - Diagnosis (1) Uncontrolled diabetes mellitus Qualifiers: Diabetes mellitus type: type 2 Is this a current diagnosis for this admission?: Yes Plan: Ct with IV fluids normal saline at 12cc/hr; Accucheck QAC, QHS with slidding scale with Humalog insulin [facility] protocol; Increase Levemir to 50 iu q12h subcut ;Add humalog [id number] iu qac subcut;1800 calorie ADA diet; dietary counseling.Hold Invokana for now. (2) Hyponatremia Is this a current diagnosis for this admission?: Yes Plan: Ct with IV fluids normal saline at 125 cc/hr; Fluid restriction to 1.5 l/day; monitor chemistries daily. (3) Hypertension Qualifiers: Hypertension type: essential hypertension Qualified Code(s): I10 - Essential (primary) hypertension Is this a current diagnosis for this admission?: Yes Plan: Ct with Losartan 25 mg qd po; Atenolol 50 mg qd po; 2 g sodium diet. (4) Hyperlipidemia Qualifiers: Hyperlipidemia type: mixed hyperlipidemia Qualified Code(s): E78.2 - Mixed hyperlipidemia Is this a current diagnosis for this admission?: Yes Plan: Ct with Atorvastatin 20 mg qhs po; Tricor 145 mg qd po; 200 mg cholesterol diet. (5) Hypothyroidism Qualifiers: Hypothyroidism type: unspecified Qualified Code(s): E03.9 - Hypothyroidism , unspecified Is this a current diagnosis for this admission?: Yes Plan: Ct with Levothyroxine 50 mcg qd po. (6) Diabetic neuropathy Qualifiers: Diabetes mellitus type: type 2 Diabetes mellitus complication detail: diabetic polyneuropathy Qualified Code(s): E11.42 - Type 2 diabetes mellitus with diabetic polyneuropathy Is this a current diagnosis for this admission?: Yes Plan: Ct with Gabapentin 300 mg BID po. (7) CAD (coronary artery disease) Is this a current diagnosis for this admission?: Yes Plan: Ct with Plavix 75 mg qd po; Ranexa 500 mg BID PO; NTG 0.4 mg q5 min prn s/L x3. (8) Cirrhosis of liver Is this a current diagnosis for this admission?: Yes Plan: Ct with Lactulose 15 mls qd po; Lasix 20 mg qd po; Spironolactone 50 mg qd PO. (9) Reflux esophagitis Is this a current diagnosis for this admission?: Yes Plan: Ct with Prevacid 30 mg qd po since Omeprazole is not in our formulary. (10) Osteoarthritis Is this a current diagnosis for this admission?: Yes Plan: Ct with Percocet 5/325 1 q6h prn po. (11) Migraine headache Is this a current diagnosis for this admission?: Yes Plan: Ct with Topamax 100 mg q12h PO. (12) Rhinitis, allergic Is this a current diagnosis for this admission?: Yes Plan: Ct with Flonase nasal spray- 1 spray daily; Claritin 10mg qd po. (13) Depression Qualifiers: Depression Type: unspecified Qualified Code(s): F32.9 - Major depressive disorder, single episode, unspecified Is this a current diagnosis for this admission?: Yes Plan: Ct with Celexa 20 mg qd po; Amitriptyline 25 mg qhs po. (14) DVT prophylaxis Is this a current diagnosis for this admission?: Yes Plan: Ct with Lovenox 40 mg qd subcut; SCD. - Time Time Spent: 30 to 50 Minutes Medications reviewed and adjusted accordingly: Yes Anticipated discharge: Home Within: within 72 hours - Inpatient Certification Medical Necessity: Failure to Improve With Outpatient Therapy, Significant Comorbidiites Make Outpatient Treatment Too Risky, Need Close Monitoring Due to Risk of Patient Decompensation, Need For IV Fluids, Risk of Complication if Not Cared For in Hospital, Risk of Diagnosis Which Will Require Inpatient Eval/Care/ Monitoring
[2017-11-25] MEDS ORDERED: DEXTROSE 40% GEL 15 GM TUBE PO PRN (13:28)
[2017-11-25] MEDS ORDERED: DEXTROSE 50%-WATER SYRINGE 12.5 GM/25 ML DOSE IV PRN (13:28)
[2017-11-25] MEDS ORDERED: GLUCAGON,HUMAN RECOMB 1 MG INJ IM PRN (13:28)
[2017-11-25] MEDS ORDERED: DEXTROSE 40% GEL 15 GM TUBE X 2 PO PRN (13:28)
[2017-11-25] MEDS ORDERED: DEXTROSE 50%-WATER SYRINGE 25 GM/50 ML DOSE IV PRN (13:28)
[2017-11-25] MEDS ORDERED: LANSOPRAZOLE 30 MG TAB.RAP.DR PO ONE (13:30)
[2017-11-25 16:13] LABS: ANION GAP 12 (5-19); BLOOD UREA NITROGEN 22 mg/dL (7-20); CALCIUM 8.8 mg/dL (8.4-10.2); CARBON DIOXIDE 24 mmol/L (22-30); CHLORIDE 93 mmol/L (98-107); POTASSIUM 4.4 mmol/L (3.6-5.0); SODIUM 129.3 mmol/L (137-145)
[2017-11-25 16:22] LABS: GLUCOSE 563 mg/dL (75-110)
[2017-11-25] MEDS: INSULIN LISPRO 100 UNIT/ML 3 ML VIAL SUBCUT SCH (16:48)
[2017-11-25] MEDS: INSULIN LISPRO 100 UNIT/ML 3 ML VIAL SUBCUT PRN ×2 (16:49→22:02)
[2017-11-25] MEDS: PROMETHAZINE HCL 25 MG TABLET PO SCH (18:34)
[2017-11-25] MEDS: TOPIRAMATE 100 MG TABLET PO SCH (21:12)
[2017-11-25] MEDS: GABAPENTIN 300 MG CAPSULE PO SCH (21:12)
[2017-11-25] MEDS: ATORVASTATIN CALCIUM 20 MG TABLET PO SCH (21:12)
[2017-11-25] MEDS: RANOLAZINE 500 MG TAB.SR.12H PO SCH (21:12)
[2017-11-25] MEDS: AMITRIPTYLINE HCL 25 MG TABLET PO SCH (21:12)
[2017-11-25] MEDS: ZOLPIDEM TARTRATE 5 MG TABLET PO SCH (21:21)
[2017-11-25] MEDS: INSULIN DETEMIR 100 UNIT/ML 3 ML PEN SUBCUT SCH (21:55)
[2017-11-26] MEDS: LEVOTHYROXINE SODIUM 0.05 MG TABLET PO SCH (05:20)
[2017-11-26] MEDS: LANSOPRAZOLE 30 MG TAB.RAP.DR PO SCH (05:20)
[2017-11-26 05:29] LABS: HEMATOCRIT 34.1 % (36.0-47.0); MEAN CORPUSCULAR HEMOGLOBIN 29.4 pg (27.0-33.4); MEAN CORPUSCULAR HGB CONC 34.6 g/dL (32.0-36.0); MEAN CORPUSCULAR VOLUME 85 fl (80-97); PLATELET COUNT 158 10^3/uL (150-450); RED BLOOD COUNT 4.01 10^6/uL (3.72-5.28)
[2017-11-26 05:32] LABS: HEMOGLOBIN 11.8 g/dL (12.0-15.5)
[2017-11-26 05:48] LABS: ALANINE AMINOTRANSFERASE 12 U/L (9-52); ALBUMIN 3.2 g/dL (3.5-5.0); ALKALINE PHOSPHATASE 87 U/L (38-126); ANION GAP 9 (5-19); ASPARTATE AMINO TRANSFERASE 15 U/L (14-36); BILIRUBIN,DIRECT 0.5 mg/dL (0.0-0.4); BILIRUBIN,TOTAL 0.5 mg/dL (0.2-1.3); BLOOD UREA NITROGEN 19 mg/dL (7-20); CALCIUM 8.7 mg/dL (8.4-10.2); CARBON DIOXIDE 23 mmol/L (22-30); CHLORIDE 101 mmol/L (98-107); CHOLESTEROL 127.61 mg/dL (0-200); GLUCOSE 339 mg/dL (75-110); POTASSIUM 3.9 mmol/L (3.6-5.0); SODIUM 132.7 mmol/L (137-145); TOTAL PROTEIN 6.6 g/dL (6.3-8.2); TRIGLYCERIDES 174 mg/dL (<150)
[2017-11-26 05:59] LABS: DIRECT LDL 70 mg/dL (<100)
[2017-11-26 06:02] LABS: VLDL CHOLESTEROL 34.8 mg/dL (10-31)
[2017-11-26] MEDS: INSULIN LISPRO 100 UNIT/ML 3 ML VIAL SUBCUT SCH ×3 (09:40→17:15)
[2017-11-26] MEDS: INSULIN LISPRO 100 UNIT/ML 3 ML VIAL SUBCUT PRN ×4 (09:41→21:51)
[2017-11-26] MEDS: LACTULOSE SYRUP 20 GM/30 ML UDCUP PO SCH (09:41)
[2017-11-26] MEDS: FLUTICASONE NASAL SPRAY 50 MCG/SPRY 120 SPRAY/16 GM NASL SCH (09:41)
[2017-11-26] MEDS: RANOLAZINE 500 MG TAB.SR.12H PO SCH ×2 (09:42→21:44)
[2017-11-26] MEDS: INSULIN DETEMIR 100 UNIT/ML 3 ML PEN SUBCUT SCH ×2 (09:42→21:45)
[2017-11-26] MEDS: LOSARTAN POTASSIUM 25 MG TABLET PO SCH (09:42)
[2017-11-26] MEDS: FUROSEMIDE 20 MG TABLET PO SCH (09:42)
[2017-11-26] MEDS: CITALOPRAM HYDROBROMIDE 20 MG TABLET PO SCH (09:42)
[2017-11-26] MEDS: ATENOLOL 50 MG TABLET PO SCH (09:42)
[2017-11-26] MEDS: GABAPENTIN 300 MG CAPSULE PO SCH ×2 (09:42→21:44)
[2017-11-26] MEDS: FENOFIBRATE NANOCRYSTALLIZED 145 MG TABLET PO SCH (09:43)
[2017-11-26] MEDS: CLOPIDOGREL BISULFATE 75 MG TABLET PO SCH (09:43)
[2017-11-26] MEDS: LORATADINE 10 MG TABLET PO SCH (09:43)
[2017-11-26] MEDS: ENOXAPARIN SODIUM INJ 40 MG/0.4 ML DISP.SYRIN SUBCUT SCH (09:43)
[2017-11-26] MEDS: SPIRONOLACTONE 25 MG TABLET PO SCH (09:43)
[2017-11-26] MEDS: PROMETHAZINE HCL 25 MG TABLET PO SCH ×3 (09:43→18:01)
[2017-11-26] MEDS: TOPIRAMATE 100 MG TABLET PO SCH ×2 (09:44→21:44)
[2017-11-26] MEDS: NORMAL SALINE 1000 ML 1,000 ML IV PRN ×2 (09:52→21:42)
--- NOTE | 2017-11-26 15:21 | PDOC PROGRESS REPORT ---
Subjective Progress Note for:: 11/26/17 Subjective:: Pt is doing fairly better except that her BG is still high and we increased Levemir to 60 iu BID subcut. Counseling on dietary mgt of DM done. Her Sodium has increased to 132.7; we will continue with normal saline and fluid restriction. For possible discharge home tomorrow if she is stable and back to baseline. Reason For Visit: UNCONTROLLED/DM HYPONATREMIA Physical Exam Vital Signs: Temp Pulse Resp BP Pulse Ox 98.2 F 74 18 109/70 96 11/26/17 08:02 11/26/17 14:00 11/26/17 08:02 11/26/17 08:02 11/26/17 08:02 Intake & Output 11/25/17 11/26/17 11/27/17 06:59 06:59 06:59 Intake Total 3785 Balance 3785 Weight 86.5 kg General appearance: PRESENT: no acute distress, cooperative, well-developed, well-nourished Head exam: PRESENT: atraumatic, normocephalic Eye exam: PRESENT: EOMI, PERRLA Ear exam: PRESENT: TM's normal bilaterally Mouth exam: PRESENT: neck supple, tongue midline Neck exam: PRESENT: full ROM Respiratory exam: PRESENT: clear to auscultation rakesh, symmetrical Cardiovascular exam: PRESENT: +S1, +S2 Pulses: PRESENT: +2 pedal pulses bilateral GI/Abdominal exam: PRESENT: normal bowel sounds, soft Rectal exam: PRESENT: deferred Extremities exam: PRESENT: full ROM Musculoskeletal exam: PRESENT: full ROM Neurological exam: PRESENT: alert, awake, oriented to person, oriented to place , oriented to time Psychiatric exam: PRESENT: normal mood Results Laboratory Results: 11/26/17 04:42 11/26/17 04:42 11/25/17 11/26/17 11/26/17 15:35 04:42 04:42 WBC 5.0 RBC 4.01 Hgb 11.8 L D Hct 34.1 L MCV 85 MCH 29.4 MCHC 34.6 RDW 14.0 Plt Count 158 Sodium 129.3 L 132.7 L Potassium 4.4 3.9 Chloride 93 L 101 Carbon Dioxide 24 23 Anion Gap 12 9 BUN 22 H 19 Creatinine 0.97 1.04 Est GFR ( Amer) > 60 > 60 Est GFR (Non-Af Amer) 58 L 53 L Glucose 563 H* 339 H Calcium 8.8 8.7 Total Bilirubin 0.5 AST 15 ALT 12 Alkaline Phosphatase 87 Total Protein 6.6 Albumin 3.2 L Triglycerides 174 H Cholesterol 127.61 LDL Cholesterol Direct 70 VLDL Cholesterol 34.8 H HDL Cholesterol 21 L TSH 11/26/17 04:42 WBC RBC Hgb Hct MCV MCH MCHC RDW Plt Count Sodium Potassium Chloride Carbon Dioxide Anion Gap BUN Creatinine Est GFR ( Amer) Est GFR (Non-Af Amer) Glucose Calcium Total Bilirubin AST ALT Alkaline Phosphatase Total Protein Albumin Triglycerides Cholesterol LDL Cholesterol Direct VLDL Cholesterol HDL Cholesterol TSH 2.93 Assessment & Plan - Diagnosis (1) Uncontrolled diabetes mellitus Qualifiers: Diabetes mellitus type: type 2 Is this a current diagnosis for this admission?: Yes Plan: Ct with IV fluids normal saline at 125cc/hr; Accucheck QAC, QHS with slidding scale with Humalog insulin [facility] protocol; Increase Levemir to 60 iu q12h subcut ;Add humalog [id number] iu qac subcut;1800 calorie ADA diet; dietary counseling.Hold Invokana for now. (2) Hyponatremia Is this a current diagnosis for this admission?: Yes Plan: Ct with IV fluids normal saline at 125 cc/hr; Fluid restriction to 1.5 l/day; monitor chemistries daily. (3) Hypertension Qualifiers: Hypertension type: essential hypertension Qualified Code(s): I10 - Essential (primary) hypertension Is this a current diagnosis for this admission?: Yes Plan: Ct with Losartan 25 mg qd po; Atenolol 50 mg qd po; 2 g sodium diet. (4) Hyperlipidemia Qualifiers: Hyperlipidemia type: mixed hyperlipidemia Qualified Code(s): E78.2 - Mixed hyperlipidemia Is this a current diagnosis for this admission?: Yes Plan: Ct with Atorvastatin 20 mg qhs po; Tricor 145 mg qd po; 200 mg cholesterol diet. (5) Hypothyroidism Qualifiers: Hypothyroidism type: unspecified Qualified Code(s): E03.9 - Hypothyroidism , unspecified Is this a current diagnosis for this admission?: Yes Plan: Ct with Levothyroxine 50 mcg qd po. (6) Diabetic neuropathy Qualifiers: Diabetes mellitus type: type 2 Diabetes mellitus complication detail: diabetic polyneuropathy Qualified Code(s): E11.42 - Type 2 diabetes mellitus with diabetic polyneuropathy Is this a current diagnosis for this admission?: Yes Plan: Ct with Gabapentin 300 mg BID po. (7) CAD (coronary artery disease) Is this a current diagnosis for this admission?: Yes Plan: Ct with Plavix 75 mg qd po; Ranexa 500 mg BID PO; NTG 0.4 mg q5 min prn s/L x3. (8) Cirrhosis of liver Is this a current diagnosis for this admission?: Yes Plan: Ct with Lactulose 15 mls qd po; Lasix 20 mg qd po; Spironolactone 50 mg qd PO. (9) Reflux esophagitis Is this a current diagnosis for this admission?: Yes Plan: Ct with Prevacid 30 mg qd po since Omeprazole is not in our formulary. (10) Osteoarthritis Is this a current diagnosis for this admission?: Yes Plan: Ct with Percocet 5/325 1 q6h prn po. (11) Migraine headache Is this a current diagnosis for this admission?: Yes Plan: Ct with Topamax 100 mg q12h PO. (12) Rhinitis, allergic Is this a current diagnosis for this admission?: Yes Plan: Ct with Flonase nasal spray- 1 spray daily; Claritin 10mg qd po. (13) Depression Qualifiers: Depression Type: unspecified Qualified Code(s): F32.9 - Major depressive disorder, single episode, unspecified Is this a current diagnosis for this admission?: Yes Plan: Ct with Celexa 20 mg qd po; Amitriptyline 25 mg qhs po. (14) DVT prophylaxis Is this a current diagnosis for this admission?: Yes Plan: Ct with Lovenox 40 mg qd subcut; SCD.
[2017-11-26] MEDS: ATORVASTATIN CALCIUM 20 MG TABLET PO SCH (21:44)
[2017-11-26] MEDS: ZOLPIDEM TARTRATE 5 MG TABLET PO SCH (21:44)
[2017-11-26] MEDS: AMITRIPTYLINE HCL 25 MG TABLET PO SCH (21:44)
[2017-11-26] MEDS ORDERED: INSULIN DETEMIR 100 UNIT/ML 3 ML PEN SUBCUT SCH (22:00)
[2017-11-27] MEDS: LANSOPRAZOLE 30 MG TAB.RAP.DR PO SCH (05:15)
[2017-11-27] MEDS: LEVOTHYROXINE SODIUM 0.05 MG TABLET PO SCH (05:15)
[2017-11-27 05:29] LABS: HEMOGLOBIN 11.5 g/dL (12.0-15.5); MEAN CORPUSCULAR HEMOGLOBIN 29.7 pg (27.0-33.4); MEAN CORPUSCULAR VOLUME 85 fl (80-97); PLATELET COUNT 165 10^3/uL (150-450); RED BLOOD COUNT 3.89 10^6/uL (3.72-5.28); RED CELL DISTRIBUTION WIDTH 14.2 % (11.5-14.0); WHITE BLOOD COUNT 5.5 10^3/uL (4.0-10.5)
[2017-11-27 05:55] LABS: ALANINE AMINOTRANSFERASE 14 U/L (9-52); ALKALINE PHOSPHATASE 71 U/L (38-126); ANION GAP 9 (5-19); ASPARTATE AMINO TRANSFERASE 14 U/L (14-36); BILIRUBIN,DIRECT 0.4 mg/dL (0.0-0.4); BILIRUBIN,TOTAL 0.5 mg/dL (0.2-1.3); BLOOD UREA NITROGEN 14 mg/dL (7-20); CALCIUM 8.6 mg/dL (8.4-10.2); CARBON DIOXIDE 21 mmol/L (22-30); CHLORIDE 108 mmol/L (98-107); GLUCOSE 174 mg/dL (75-110); POTASSIUM 3.9 mmol/L (3.6-5.0); SODIUM 137.9 mmol/L (137-145); TOTAL PROTEIN 6.4 g/dL (6.3-8.2)
[2017-11-27] MEDS: INSULIN LISPRO 100 UNIT/ML 3 ML VIAL SUBCUT SCH ×2 (08:28→11:59)
[2017-11-27] MEDS: INSULIN LISPRO 100 UNIT/ML 3 ML VIAL SUBCUT PRN ×2 (08:29→11:59)
[2017-11-27] MEDS: LACTULOSE SYRUP 20 GM/30 ML UDCUP PO SCH (09:36)
[2017-11-27] MEDS: ENOXAPARIN SODIUM INJ 40 MG/0.4 ML DISP.SYRIN SUBCUT SCH (09:36)
[2017-11-27] MEDS: INSULIN DETEMIR 100 UNIT/ML 3 ML PEN SUBCUT SCH (09:36)
[2017-11-27] MEDS: TOPIRAMATE 100 MG TABLET PO SCH (09:37)
[2017-11-27] MEDS: CITALOPRAM HYDROBROMIDE 20 MG TABLET PO SCH (09:37)
[2017-11-27] MEDS: SPIRONOLACTONE 25 MG TABLET PO SCH (09:37)
[2017-11-27] MEDS: FUROSEMIDE 20 MG TABLET PO SCH (09:37)
[2017-11-27] MEDS: LOSARTAN POTASSIUM 25 MG TABLET PO SCH ×2 (09:37→11:44)
[2017-11-27] MEDS: LORATADINE 10 MG TABLET PO SCH (09:37)
[2017-11-27] MEDS: FENOFIBRATE NANOCRYSTALLIZED 145 MG TABLET PO SCH (09:37)
[2017-11-27] MEDS: RANOLAZINE 500 MG TAB.SR.12H PO SCH (09:37)
[2017-11-27] MEDS: CLOPIDOGREL BISULFATE 75 MG TABLET PO SCH (09:37)
[2017-11-27] MEDS: GABAPENTIN 300 MG CAPSULE PO SCH (09:37)
[2017-11-27] MEDS: ATENOLOL 50 MG TABLET PO SCH (09:37)
[2017-11-27] MEDS: PROMETHAZINE HCL 25 MG TABLET PO SCH (09:38)
[2017-11-27] MEDS: NORMAL SALINE 1000 ML 1,000 ML IV PRN (09:38)
[2017-11-27] MEDS: FLUTICASONE NASAL SPRAY 50 MCG/SPRY 120 SPRAY/16 GM NASL SCH (09:42)
[2017-11-27 11:42] VITALS: BP 137/94
--- NOTE | 2017-11-27 13:13 | PDOC DISCHARGE SUMMARY ---
General - Admit/Disc Date/PCP Admission Date/Primary Care Provider: 11/25/17 08:30 TATY RIVERA Discharge Date: 11/27/17 - Discharge Diagnosis (1) Uncontrolled diabetes mellitus Is this a current diagnosis for this admission?: Yes (2) Hyponatremia Is this a current diagnosis for this admission?: Yes (3) Hypertension Is this a current diagnosis for this admission?: Yes (4) Hyperlipidemia Is this a current diagnosis for this admission?: Yes (5) Hypothyroidism Is this a current diagnosis for this admission?: Yes (6) Diabetic neuropathy Is this a current diagnosis for this admission?: Yes (7) CAD (coronary artery disease) Is this a current diagnosis for this admission?: Yes (8) Cirrhosis of liver Is this a current diagnosis for this admission?: Yes (9) Reflux esophagitis Is this a current diagnosis for this admission?: Yes (10) Osteoarthritis Is this a current diagnosis for this admission?: Yes (11) Migraine headache Is this a current diagnosis for this admission?: Yes (12) Rhinitis, allergic Is this a current diagnosis for this admission?: Yes (13) Depression Is this a current diagnosis for this admission?: Yes (14) DVT prophylaxis Is this a current diagnosis for this admission?: Yes - Additional Information Home Medications: Amitriptyline HCl [Elavil 25 mg Tablet] 25 mg PO QHS 11/25/17 Aspirin [Aspirin EC] 81 mg PO DAILY 11/25/17 Atenolol [Tenormin 50 mg Tablet] 50 mg PO DAILY 11/25/17 Atorvastatin Calcium [Lipitor 20 mg Tablet] 20 mg PO QHS 11/25/17 Cholecalciferol (Vitamin D3) [Vitamin D3] 50,000 unit PO WESA 11/25/17 Citalopram Hydrobromide [Celexa 20 mg Tablet] 20 mg PO DAILY 11/25/17 Clopidogrel Bisulfate [Plavix 75 mg Tablet] 75 mg PO DAILY 11/25/17 Fenofibrate Nanocrystallized [Fenofibrate] 145 mg PO DAILY 11/25/17 Furosemide [Lasix 20 mg Tablet] 20 mg PO QAM 11/25/17 Gabapentin [Neurontin 300 mg Capsule] 300 mg PO Q12 11/25/17 Insulin Aspart Prot/Insuln Asp [Novolog Mix 70-30 Flexpen Syrn] 20 unit SQ TID 11/25/17 Levothyroxine Sodium [Synthroid 0.05 mg Tablet] 50 mcg PO DAILY 11/25/17 Losartan Potassium [Cozaar 25 mg Tablet] 25 mg PO DAILY 11/25/17 Nitroglycerin [Nitrostat 0.4 mg (1/150 Gr) Tabs 25/Bottle] 1 tab SL Q5MP PRN 03/14 Oxycodone HCl/Acetaminophen [Percocet 7.5-325 mg Tablet] 1 each PO TIDP PRN 03/14 Ranolazine [Ranexa] 500 mg PO BID 11/25/17 Spironolactone [Aldactone] 50 mg PO DAILY 11/25/17 Zolpidem Tartrate [Ambien 5 mg Tablet] 5 mg PO HSP PRN 11/25/17 Insulin Detemir [Levemir Flextouch] 60 unit SQ Q12 #0 11/27/17 History of Present Illness History of Present Illness: DONNIE ROSALES is a 62 year old female with hx of DM2/DM neuropathyHTN/ Hyperlipidemia/Hypothyroidism/CAD s.p stentsx2/Chronic ischemic heart disease/ Liver cirrhosis/GERD/DM gastroparesis/OA/Hepatitis B/Migraine [place]/Tremors/ Depression, who was in her baseline till a couple of days ago, she started having worsening generalized weakness, fatigue, blurry vision and inability to walk around. Her blood sugar was persistently high, so she decided to to come to ER for evaluation. Her BG at ER was 773 and her sodium was 125. She was admitted for uncontrolled DM and hyponatremia. Hospital Course Hospital Course: 62 year old woman with multiple medical problems who was admitted for uncontrolled DM/Hyponatremia. She was admitted to telemetry floor. She was put on IV fluids with normal saline and Levemir insulin was increased to 60 units subcut and Humalog insulin 10 units qac subcut in addition to slidding scale with humalog insulin.She had dietary counseling for dietary mgt of insulin. Her Sodium is normal to 137 and accucheck is fairly controlled. She is stable and back to her baseline and will be discharged home today. Both pt and her family are in agreement with this plan of care. Pt will follow up with me within 1 week for transition of care. Physical Exam Vital Signs: Temp Pulse Resp BP Pulse Ox 98.6 F 73 16 137/94 H 97 11/27/17 11:29 11/27/17 11:29 11/27/17 11:29 11/27/17 11:29 11/27/17 11:29 Intake & Output 11/26/17 11/27/17 11/28/17 06:59 06:59 06:59 Intake Total 3785 3000 594 Output Total 0 Balance 3785 3000 594 Weight 86.5 kg 90.3 kg General appearance: PRESENT: no acute distress, cooperative, well-developed, well-nourished Head exam: PRESENT: atraumatic, normocephalic Eye exam: PRESENT: EOMI, PERRLA Ear exam: PRESENT: normal external ear exam, TM's normal bilaterally Mouth exam: PRESENT: moist, neck supple Neck exam: PRESENT: full ROM Respiratory exam: PRESENT: chest wall tenderness, clear to auscultation rakesh, symmetrical Cardiovascular exam: PRESENT: +S1, +S2 Pulses: PRESENT: +2 pedal pulses bilateral GI/Abdominal exam: PRESENT: normal bowel sounds, soft Rectal exam: PRESENT: deferred Extremities exam: PRESENT: full ROM Musculoskeletal exam: PRESENT: full ROM Neurological exam: PRESENT: alert, awake, oriented to person, oriented to place , oriented to time Psychiatric exam: PRESENT: normal mood Results Laboratory Results: 11/27/17 04:58 11/27/17 04:58 11/27/17 11/27/17 04:58 04:58 WBC 5.5 RBC 3.89 Hgb 11.5 L Hct 33.0 L MCV 85 MCH 29.7 MCHC 35.0 RDW 14.2 H Plt Count 165 Sodium 137.9 Potassium 3.9 Chloride 108 H Carbon Dioxide 21 L Anion Gap 9 BUN 14 Creatinine 1.20 Est GFR ( Amer) 55 L Est GFR (Non-Af Amer) 45 L Glucose 174 H Calcium 8.6 Total Bilirubin 0.5 AST 14 ALT 14 Alkaline Phosphatase 71 Total Protein 6.4 Albumin 3.0 L Qualifiers - * PATIENT BEING DISCHARGED WITH ANY OF THE FOLLOWING DIAGNOSIS: No
== END 2017-11-27 14:43 | disposition home or self-care (01) | DRG 641 ==
LOC: ER 17:11 → EH 11-25 08:30 → 3W 11-25 11:49
PROVIDERS: ADMIT Internal Medicine; ATTEND Internal Medicine
DX: E87.1 Hypo-osmolality and hyponatremia (principal); B19.10 Unspecified viral hepatitis B without hepatic coma; E11.65 Type 2 diabetes mellitus with hyperglycemia; E11.42 Type 2 diabetes mellitus with diabetic polyneuropathy; E78.00 Pure hypercholesterolemia, unspecified; I10 Essential (primary) hypertension; E03.9 Hypothyroidism, unspecified; I25.10 Atherosclerotic heart disease of native coronary artery without angina pectoris; K21.9 Gastro-esophageal reflux disease without esophagitis; K74.60 Unspecified cirrhosis of liver; F32.9 Major depressive disorder, single episode, unspecified; G43.909 Migraine, unspecified, not intractable, without status migrainosus; E78.5 Hyperlipidemia, unspecified; Z95.5 Presence of coronary angioplasty implant and graft; Z79.4 Long term (current) use of insulin; Z79.82 Long term (current) use of aspirin
CPT/HCPCS: 36415; 80048; 80053; 80061; 81001; 82140; 82803; 82962; 83036; 84443; 85025; 85027; 85610; 90686; 93005; 93010; 96360; 96361; 99284; J1650; J1815; J3490

== ENCOUNTER → 2018-08-27 | Outpatient (CLI) | payer MEDICARE, MEDICAID ==
--- NOTE | 2018-08-27 15:05 | WOMENS IMAGING REPORT ---
EXAM DESCRIPTION: BILAT SCREENING MAMMO W/CAD COMPLETED DATE/TIME: 08/27/2018 1:10 pm REASON FOR STUDY: Z12.31 ROUTINE BILATERAL SCREENING Z12.31 ENCNTR SCREEN MAMMOGRAM FOR MALIGNANT N EOPLASM OF JESSIE R51 HEADACHE COMPARISON: MULTIPLE SINCE 2016 EXAM PARAMETERS: Standard craniocaudal and mediolateral oblique views of each breast recorded using digital acquisition. Read with the assistance of CAD. .[facility] - [employer] Systems Operator Version 9.2 LIMITATIONS: None. FINDINGS: Findings present which are benign by mammographic criteria. No suspicious masses, calcifi cations or architectural distortion. Pertinent benign findings: Benign bilateral breast parenchymal calcifications Benign mammographic findings may include one or more of the following: Smooth masses, popcorn/rim/co arse calcifications, asymmetries, post-procedure changes, and lesions with long-standing stability. IMPRESSION: BENIGN MAMMOGRAPHIC FINDINGS. BIRADS 2 BREAST DENSITY: b. There are scattered areas of fibroglandular density. BIRAD: ASSESSMENT: 2 BENIGN FINDING(S) RECOMMENDATION: ROUTINE SCREENING COMMENT: The patient has been notified of the results by letter per SA requirements. Additional no tification policies are in place for contacting patient with suspicious or incomplete findings. Quality ID #225: The [employer] recommends an annual screening mammogram for women aged 40 years or over. This facility utilizes a reminder system to ensure that all patients receive reminder letters, and/or direct phone calls for appointments. This includes reminders for routine scr eening mammograms, diagnostic mammograms, or other Breast Imaging Interventions when appropriate. Th is patient will be placed in the appropriate reminder system. TECHNICAL DOCUMENTATION: FINDING NUMBER: (1) ASSESSMENT: (1) JOB ID: [id number] [employer]- All Rights Reserved Reading location - IP/workstation name: PERINATAL BREASTFEEDING ASSISTANT-[email or web address]
== END ==
LOC: WI 12:59
PROVIDERS: ATTEND Internal Medicine
DX: Z12.31 Encounter for screening mammogram for malignant neoplasm of breast (principal)
CPT/HCPCS: 77067

== ENCOUNTER → 2018-08-29 | Outpatient (CLI) | payer MEDICARE, MEDICAID ==
--- NOTE | 2018-08-29 12:38 | RADIOLOGY REPORT (SQ) ---
EXAM DESCRIPTION: CT HEAD WITHOUT COMPLETED DATE/TIME: 08/29/2018 11:56 am REASON FOR STUDY: R51 HEADACHE R51 HEADACHE COMPARISON: None. TECHNIQUE: Axial images acquired through the brain without intravenous contrast. Images reviewed wi th bone, brain and subdural windows. Images stored on PACS. All CT scanners at this facility use dose modulation, iterative reconstruction, and/or weight based d osing when appropriate to reduce radiation dose to as low as reasonably achievable (ALARA). [facility]: Dose Right [facility]: CareDose [facility]: Dose Right [facility]: Teradose 4D [facility]: Smart [employer] RADIATION DOSE: CT Rad equipment meets quality standard of care and radiation dose reduction techniq ues were employed. CTDIvol: 48.6 mGy. DLP: 904 mGy-cm. mGy. LIMITATIONS: None. FINDINGS: VENTRICLES: Normal size and contour. CEREBRUM: No masses. No hemorrhage. No midline shift. No evidence for acute infarction. Normal gra y/white matter differentiation. No areas of low density in the white matter. CEREBELLUM: No masses. No hemorrhage. No alteration of density. No evidence for acute infarction. EXTRAAXIAL SPACES: No fluid collections. No masses. ORBITS AND GLOBE: No intra- or extraconal masses. Normal contour of globe without masses. CALVARIUM: No fracture. PARANASAL SINUSES: No fluid or mucosal thickening. SOFT TISSUES: No mass or hematoma. OTHER: No other significant finding. IMPRESSION: Age-appropriate exam. EVIDENCE OF ACUTE STROKE: NO. COMMENT: Quality ID # [id number]: Final reports with documentation of one or more dose reduction techniques (e.g., Automated exposure control, adjustment of the mA and/or kV according to patient size, use of iterative reconstruction technique) TECHNICAL DOCUMENTATION: JOB ID: [id number] [place]-72 2010 [employer]- All Rights Reserved Reading location - IP/workstation name: [email or web address]
== END ==
LOC: RAD 11:45
PROVIDERS: ATTEND Internal Medicine
DX: R51 Headache (principal)
CPT/HCPCS: 70450

== ENCOUNTER → 2019-07-06 | Outpatient (CLI) | payer MEDICARE, MEDICAID ==
--- NOTE | 2019-07-06 16:18 | RADIOLOGY REPORT (SQ) ---
EXAM DESCRIPTION: ANKLE RIGHT COMPLETE IMAGES COMPLETED DATE/TIME: 07/06/2019 3:41 pm REASON FOR STUDY: ANKYLOSIS, RIGHT ANKLE M24.672 ANKYLOSIS, LEFT ANKLE COMPARISON: None. NUMBER OF VIEWS: Three views. TECHNIQUE: AP, lateral, and oblique radiographic images acquired of the right ankle. LIMITATIONS: None. FINDINGS: MINERALIZATION: Osteopenia. BONES: No acute fracture. The ankle mortise and talar dome are intact. JOINTS: No effusions. SOFT TISSUES: No soft tissue swelling. The Achilles tendon silhouette is intact. OTHER: No other finding. IMPRESSION: No acute osseous abnormality of the right ankle. TECHNICAL DOCUMENTATION: JOB ID: [id number] 2010 [employer]- All Rights Reserved Reading location - IP/workstation name: [email or web address]
== END ==
LOC: RAD 15:21
PROVIDERS: ATTEND Internal Medicine
DX: M24.671 Ankylosis, right ankle (principal)

== ENCOUNTER 2019-07-08 04:15 | Emergency (ER) | payer MEDICARE, MEDICAID ==
[2019-07-08] MEDS ORDERED: METOCLOPRAMIDE HCL INJ/PF 10 MG/2 ML SDV IV ONE (05:30)
[2019-07-08 05:36] LABS: ABSOLUTE BASOPHILS # (AUTO) 0.1 10^3/uL (0.0-0.2); ABSOLUTE EOSINOPHILS # (AUTO) 0.2 10^3/uL (0.0-0.6); ABSOLUTE MONOCYTES (AUTO) 0.7 10^3/uL (0.1-1.4); ABSOLUTE NEUT (AUTO) 3.1 10^3/uL (1.7-8.2); BASOPHILS % (AUTO) 0.9 % (0-2); EOSINOPHILS % (AUTO) 3.6 % (0-6); HEMATOCRIT 38.5 % (36.0-47.0); HEMOGLOBIN 13.4 g/dL (12.0-15.5); LYMPHOCYTES % (AUTO) 33.5 % (13-45); MEAN CORPUSCULAR HEMOGLOBIN 29.6 pg (27.0-33.4); MEAN CORPUSCULAR HGB CONC 34.8 g/dL (32.0-36.0); MEAN CORPUSCULAR VOLUME 85 fl (80-97); MONOCYTES % (AUTO) 10.9 % (3-13); PLATELET COUNT 167 10^3/uL (150-450); RED BLOOD COUNT 4.54 10^6/uL (3.72-5.28); RED CELL DISTRIBUTION WIDTH 14.2 % (11.5-14.0); SEGMENTED NEUTROPHILS % (AUTO) 51.1 % (42-78); TOTAL CELLS COUNTED % (AUTO) 100 %
[2019-07-08 05:38] LABS: ALBUMIN 4.3 g/dL (3.5-5.0); ALKALINE PHOSPHATASE 119 U/L (38-126); ANION GAP 13 (5-19); ASPARTATE AMINO TRANSFERASE 25 U/L (14-36); BILIRUBIN,DIRECT 0.1 mg/dL (0.0-0.4); BILIRUBIN,TOTAL 0.7 mg/dL (0.2-1.3); BLOOD UREA NITROGEN 21 mg/dL (7-20); CALCIUM 9.9 mg/dL (8.4-10.2); CARBON DIOXIDE 29 mmol/L (22-30); CHLORIDE 93 mmol/L (98-107); GLUCOSE 234 mg/dL (75-110); POTASSIUM 3.9 mmol/L (3.6-5.0)
--- NOTE | 2019-07-08 06:02 | ER Document Report ---
ED General - General Mode of Arrival: Medic Information source: Patient TRAVEL OUTSIDE OF THE [place] IN LAST 30 DAYS: No <JOHNNY VALVERDE - Last Filed: 07/08/19 08:14> <LISA BAE - Last Filed: 07/08/19 09:44> - General Chief Complaint: Nausea/Vomiting Stated Complaint: NAUSEA, VOMITING Time Seen by Provider: 07/08/19 04:54 Primary Care Provider: REGINA ROBERTSON MD [Primary Care Provider] - Follow up as needed Notes: 63-year-old female patient presented to the emergency department chief complaint of nausea and vomiting. Patient reports she had a fruit salad for dinner and started vomiting after work. She states she felt very faint, weak and diaphoretic at the time. She denies any chest pain, shortness of breath or recent illness. She denies any history of similar episodes. She denies any cardiac history. She received 4 mg of Zofran by EMS. (JOHNNY VALVERDE) - Related Data Allergies/Adverse Reactions: No Known Allergies Allergy (Verified 07/08/19 04:18) Past Medical History - General Information source: Patient - Social History Smoking Status: Never Smoker Frequency of alcohol use: None Drug Abuse: None Family History: Reviewed & Not Pertinent Patient has homicidal ideation: No - Past Medical History Cardiac Medical History: Reports: Hx Hypercholesterolemia, Hx Hypertension Endocrine Medical History: Reports: Hx Diabetes Mellitus Type 2, Hx Hypothyroidism Renal/ Medical History: Denies: Hx Peritoneal Dialysis Psychiatric Medical History: Reports: Hx Depression Past Surgical History: Reports: Hx Cardiac Catheterization - stent x2 <JOHNNY VALVERDE - Last Filed: 07/08/19 08:14> Review of Systems - Review of Systems Constitutional: No symptoms reported EENT: No symptoms reported Cardiovascular: No symptoms reported Respiratory: No symptoms reported Gastrointestinal: No symptoms reported Genitourinary: No symptoms reported Female Genitourinary: No symptoms reported Musculoskeletal: No symptoms reported Skin: No symptoms reported Hematologic/Lymphatic: No symptoms reported Neurological/Psychological: No symptoms reported <JOHNNY VALVERDE - Last Filed: 07/08/19 08:14> Physical Exam <JOHNNY VALVERDE - Last Filed: 07/08/19 08:14> - Vital signs Vitals: Resp BP Pulse Ox 22 H 107/70 98 07/08/19 04:15 05/13/20 04:15 07/08/19 04:15 - Notes Notes: PHYSICAL EXAMINATION: GENERAL: Well-appearing, well-nourished and in no acute distress. HEAD: Atraumatic, normocephalic. EYES: Pupils equal round and reactive to light, extraocular movements intact, conjunctiva are normal. ENT: Nares patent, oropharynx clear without exudates. Moist mucous membranes. NECK: Normal range of motion, supple without lymphadenopathy LUNGS: Breath sounds clear to auscultation bilaterally and equal. No wheezes rales or rhonchi. HEART: Regular rate and rhythm without murmurs ABDOMEN: Soft, nontender, nondistended abdomen. No guarding, no rebound. No masses appreciated. Female : deferred Musculoskeletal: Normal range of motion, no pitting or edema. No cyanosis. NEUROLOGICAL: Cranial nerves grossly intact. Normal speech, normal gait. Normal sensory, motor exams PSYCH: Normal mood, normal affect. SKIN: Warm, Dry, normal turgor, no rashes or lesions noted. (JOHNNY VALVERDE) Course - Laboratory Result Diagrams: 07/08/19 04:20 07/08/19 04:20 <JOHNNY VALVERDE - Last Filed: 07/08/19 08:14> - Laboratory Result Diagrams: 07/08/19 04:20 07/08/19 04:20 <LISA BAE - Last Filed: 07/08/19 09:44> - Re-evaluation Re-evalutation: Patient appears well, nontoxic, vital signs within normal limits. Abdomen soft, nontender. Patient had 3 episodes of vomiting prior to arrival. She has no symptoms at this time. Will obtain basic labs including a troponin as well as an EKG. 07/08/19 06:51 Laboratory 07/08/19 07/08/19 07/08/19 04:20 04:20 04:20 WBC 6.0 RBC 4.54 Hgb 13.4 Hct 38.5 MCV 85 MCH 29.6 MCHC 34.8 RDW 14.2 H Plt Count 167 Lymph % (Auto) 33.5 Amelia % (Auto) 10.9 Eos % (Auto) 3.6 Baso % (Auto) 0.9 Absolute Neuts (auto) 3.1 Absolute Lymphs (auto) 2.0 Absolute Monos (auto) 0.7 Absolute Eos (auto) 0.2 Absolute Basos (auto) 0.1 Seg Neutrophils % 51.1 Sodium 134.5 L Potassium 3.9 Chloride 93 L Carbon Dioxide 29 Anion Gap 13 BUN 21 H Creatinine 1.22 Est GFR ( Amer) 54 L Est GFR (MDRD) Non-Af 44 L Glucose 234 H Calcium 9.9 Total Bilirubin 0.7 Direct Bilirubin 0.1 Neonat Total Bilirubin Not Reportable Neonat Direct Bilirubin Not Reportable Neonat Indirect Bili Not Reportable AST 25 ALT 17 Alkaline Phosphatase 119 Troponin I < 0.012 Total Protein 8.0 Albumin 4.3 Lipase 116.4 Patient's work-up today has been reassuring. Troponin negative. CBC and CMP are unremarkable. Lipase normal. We will draw a repeat troponin and if negative plan to send patient home with antiemetics. (JOHNNY VALVERDE) report received on patient 07/08/19 08:29 Patient's second troponin is negative. Her urinalysis is negative. I spoke with the patient, she has no abdominal pain on exam at this time. Nausea is resolved will discharge home. Prescription for Zofran has been called into her pharmacy 07/08/19 09:37 (LISA BAE) - Vital Signs Vital signs: Temp Pulse Resp BP Pulse Ox 98.4 F 15 116/78 98 07/08/19 04:21 07/08/19 09:20 07/08/19 09:20 07/08/19 09:20 - Laboratory Laboratory results interpreted by me: 07/08/19 07/08/19 07/08/19 04:20 04:20 08:36 RDW 14.2 H Sodium 134.5 L Chloride 93 L BUN 21 H Est GFR ( Amer) 54 L Est GFR (MDRD) Non-Af 44 L Glucose 234 H Urine Glucose (UA) 50 H Discharge <JOHNNY VALVERDE - Last Filed: 07/08/19 08:14> <LISA BAE - Last Filed: 07/08/19 09:44> - Discharge Clinical Impression: Nausea & vomiting Qualifiers: Vomiting type: unspecified Vomiting Intractability: unspecified Qualified Code(s): R11.2 - Nausea with vomiting, unspecified Condition: Stable Disposition: HOME, SELF-CARE Additional Instructions: VOMITING: Vomiting (or nausea without vomiting) can be caused by many other different problems. It can mean that something's wrong with the stomach, such as ulcers or inflammation or the intestinal tract, such as appendicitis. But it can also be a symptom of a problem that has nothing to do with the stomach or intestines. Vomiting is common with severe headaches, earaches, tonsillitis, and kidney infections, etc. We see it with pneumonia or heart attacks. Drugs can cause nausea and vomiting. Many abdominal problems cause vomiting; for example, gallstones, kidney stones, pancreatitis, and intestinal obstruction (blocked bowels). In most cases, curing the vomiting depends on fixing the problem that caused it. For temporary relief, we may use an anti-nausea medicine. For home use, we can prescribe suppositories, chewable pills, pills that dissolve in the mouth, or liquid anti-nausea drugs. If the vomiting seems to be caused by a problem in the stomach, acid-suppressing drugs may be prescribed as well. It's important to avoid dehydration. Sip small amounts of clear liquids (soft drinks, tea, broth, etc) . Try to take fluids frequently even if you are vomiting to prevent dehydration. Take increasing amounts of fluid and when liquids are being consumed successfully, advance to small amounts of bland food (toast, soups, mashed potatoes, etc.) until you are able to resume a regular diet. Avoid aspirin, tobacco, and alcohol. If the vomiting worsens, if the problem that's making you vomit worsens, or if there's evidence of bleeding in the stomach (such as black, tarry stool, or bloody or black vomit), you should return immediately. Also, return if abdominal pain worsens or becomes localized to one area or you develop high fever. Call your doctor if you aren't improved in 24 hours. INTRAVENOUS (I V) FLUIDS: As part of your care today, you received intravenous (IV) fluids. IV fluids are administered to patients who are dehydrated or to those who have certain chemical (electrolyte) abnormalities that need correcting. ANTINAUSEA MEDICATION: You have been given a medication to suppress nausea and vomiting. This type of medication can be given as a shot, pill, or suppository. It will usually last for many hours. Pills and shots usually last six to eight hours. For the typical illness, only one or two doses of the medication may be necessary. Mild lightheadedness may occur. This type of medicine can cause drowsiness. Do not drive or operate dangerous machinery while under its influence. Do not mix with alcohol. See your doctor at once if you have muscle spasms or tightness, or uncontrollable motions (particularly of the neck, mouth, or jaw). Persistent vomiting or severe lightheadedness should also be evaluated by the physician. FOLLOW-UP CARE: If you have been referred to a physician for follow-up care, call the physicians office for an appointment as you were instructed or within the next two days. If you experience worsening or a significant change in your symptoms, notify the physician immediately or return to the Emergency Department at any time for re-evaluation. Prescriptions: Ondansetron [Zofran Odt 4 mg Tablet] 1 - 2 tab PO Q4H PRN #15 tab.rapdis PRN Reason: For Nausea/Vomiting Referrals: REGINA ROBERTSON MD [Primary Care Provider] - Follow up as needed
--- NOTE | 2019-07-08 08:35 | EKG REPORT ---
SEVERITY:- ABNORMAL ECG - SINUS RHYTHM PROBABLE INFERIOR INFARCT, AGE INDETERMINATE BORDERLINE R WAVE PROGRESSION, ANTERIOR LEADS : Confirmed by: Trev Womack 08-Jul-2019 08:34:30
[2019-07-08 09:36] LABS: APPEARANCE,URINE SLIGHTLY HAZY; BILIRUBIN,URINE NEGATIVE (NEGATIVE); COLOR,URINE AMBER; GLUCOSE, URINE 50 mg/dL (NEGATIVE); KETONES,URINE NEGATIVE (NEGATIVE); LEUKOCYTE ESTERASE,URINE NEGATIVE (NEGATIVE); NITRITE,URINE NEGATIVE (NEGATIVE); PROTEIN,URINE NEGATIVE (NEGATIVE); URINE SPECIFIC GRAVITY 1.017; UROBILINOGEN,URINE NEGATIVE mg/dL (<2.0)
[2019-07-08 09:37] LABS: ADD MANUAL MICROSCOPIC YES; BACTERIA,URINE TRACE /HPF; HYALINE CASTS, URINE 0-1 /LPF; RBC,URINE 0-1 /HPF; WBC,URINE 0-1 /HPF
[2019-07-08 10:12] VITALS: BP 116/73
== END 2019-07-08 09:50 | disposition home or self-care (01) ==
LOC: ER 04:15
DX: R11.2 Nausea with vomiting, unspecified (principal); I10 Essential (primary) hypertension; E11.9 Type 2 diabetes mellitus without complications; Z95.5 Presence of coronary angioplasty implant and graft
CPT/HCPCS: 93005; 99284; 96374; 36415; 83690; 85025; 80053; 81001; 84484; 93010; J2765

== ENCOUNTER → 2019-10-08 | Outpatient (CLI) | payer MEDICARE, MEDICAID ==
--- NOTE | 2019-10-08 15:07 | WOMENS IMAGING REPORT ---
EXAM DESCRIPTION: BILAT SCREENING MAMMO W/CAD IMAGES COMPLETED DATE/TIME: 10/08/2019 2:38 pm REASON FOR STUDY: ROUTINE SCREENING Z12.31 Z12.31 ENCNTR SCREEN MAMMOGRAM FOR MALIGNANT NEOPLASM OF JESSIE COMPARISON: [id number] EXAM PARAMETERS: Standard craniocaudal and mediolateral oblique views of each breast recorded using digital acquisition. Read with the assistance of CAD. .[facility] - [employer] Version 9.2 LIMITATIONS: None. FINDINGS: No suspicious masses, suspicious calcifications or architectural distortion. No areas of c oncern. IMPRESSION: NEGATIVE MAMMOGRAM. BIRADS 1 BREAST DENSITY: b. There are scattered areas of fibroglandular density. BIRAD: ASSESSMENT: 1 NEGATIVE RECOMMENDATION: ROUTINE SCREENING COMMENT: The patient has been notified of the results by letter per SA requirements. Additional no tification policies are in place for contacting patient with suspicious or incomplete findings. Quality ID #[id number]: [employer] [place] [employer] recommends an annual screening mammogram for women aged 40 years or over. This facility utilizes a reminder system to ensure that all patients receive reminder letters, and/or direct phone calls for appointments. This includes reminders for routine scr eening mammograms, diagnostic mammograms, or other Breast Imaging Interventions when appropriate. Th is patient will be placed in the appropriate reminder system. TECHNICAL DOCUMENTATION: FINDING NUMBER: (1) ASSESSMENT: (1) JOB ID: [id number] 2010 [email or web address]- All Rights Reserved Reading location - IP/workstation name: [email or web address]
== END ==
LOC: WI 15:28
PROVIDERS: ATTEND Internal Medicine
DX: Z12.31 Encounter for screening mammogram for malignant neoplasm of breast (principal)
CPT/HCPCS: 77067